=== PATIENT | female | born 1940 | race African-American/Black ===

== ENCOUNTER 2016-10-26 16:25 | Emergency (ER) | payer OTHER ==
[~2016-10-26] VITALS: Ht 165.1 cm; Wt 95.3 kg
[~2016-10-26 16:25] MED LIST: AMLO5TAB2 PO; ASPI81TA2 PO; ATOR20TA58 PO; CETI10TA16 PO; CLIN300C86 PO; HYDR-2666 PO; LOSA100T6 PO
--- NOTE | 2016-10-26 17:48 | RAD ---
PROCEDURE CT head without intravenous contrast. HISTORY Fall, trauma to back of head. TECHNIQUE Axial images are obtained of the head from the skull base through the vertex without IV contrast Noncontrast CT of the cervical spine was performed. Axial, sagittal, and coronal reconstructions were obtained. Exposure: One or more of the following individualized dose reduction techniques were utilized for this examination: 1. Automated exposure control. 2. Adjustment of the mA and/or kV according to patient size. 3. Use of iterative reconstruction technique. COMPARISON CT head June 15, 2016. FINDINGS CT head: The ventricles are appropriate in size, shape, and location for the patient's age.No obvious intracranial mass, mass-effect, midline shift, hemorrhage or obvious acute infarction is identified.Basilar cisterns are patent. Bone windows demonstrate no acute calvarial abnormality.The visualized paranasal sinuses appear clear. CT C-spine: Motion artifact is seen at several levels, which could obscure subtle abnormalities. No acute fracture or acute malalignment is identified. Multilevel degeneration is present with facet and uncovertebral hypertrophy as well as degenerative disc disease. No prevertebral soft tissue swelling is identified. Images of the upper chest demonstrate ingested food stuffs to the right of the trachea which is favored to be within esophageal diverticulum. IMPRESSION 1. No acute intracranial process. Please note that CT can be relatively insensitive to acute ischemic infarction for up to 24 hours after symptom onset. 2. No acute osseous traumatic injury identified in the cervical spine. 3. Proximal cervical esophageal diverticulum. Electronically signed by: Angel Ku MD (Oct 26, 2016 17:47:05)
--- NOTE | 2016-10-26 17:59 | PHYS DOC ---
Past Medical History Past Medical History: Hypertension Past Surgical History: Hysterectomy, Other Additional Past Surgical Histo: abscess, Left shoulder, bilat cataract Alcohol Use: None Drug Use: None Adult General Chief Complaint Chief Complaint: MECHANICAL FALL HPI HPI Patient is a 76 year old female who presents with injury to her posterior head after fall at home. She said she turned quickly in her kitchen, lost her balance , and fell backwards hitting the back of her head on her counter. She denies loss of consciousness, headache, dizziness, vision changes, numbness, tingling, weakness, nausea or vomiting, neck pain, back pain, chest pain, dyspnea, palpitations, diaphoresis, fever or chills. No other injury. Review of Systems Review of Systems Constitutional: Denies fever or chills [] Eyes: Denies change in visual acuity, redness, or eye pain [] HENT: Denies nasal congestion or sore throat [] Respiratory: Denies cough or shortness of breath [] Cardiovascular: No additional information not addressed in HPI [] GI: Denies abdominal pain, nausea, vomiting, bloody stools or diarrhea [] : Denies dysuria or hematuria [] Musculoskeletal: Denies back pain or joint pain [] Integument: Denies rash or skin lesions [] Neurologic: Denies headache, focal weakness or sensory changes [] Endocrine: Denies polyuria or polydipsia [] Allergies Allergies Allergies Coded Allergies Type Severity Reaction Last Updated Verified Penicillins Allergy Intermediate Rash 08/13/14 Yes Tetanus Vaccines and Toxoid Allergy Intermediate 10/26/16 Yes Uncoded Allergies Type Severity Reaction Last Updated Verified EGGS Allergy Unknown VOMITING 08/13/14 PENICILLIN Allergy Unknown Rash 08/13/14 Physical Exam Physical Exam Constitutional: Well developed, well nourished, no acute distress, non-toxic appearance. [] HENT: Normocephalic, bilateral external ears normal, oropharynx moist, no oral exudates, nose normal. Mid/right posterior scalp with small nonbleeding puncture wound with small hematoma superior to this, no palpable skull abnormality, minimal tenderness. [] Eyes: PERRLA, EOMI, conjunctiva normal, no discharge. [] Neck: Normal range of motion, no tenderness, supple. [] Cardiovascular:Heart rate regular rhythm [] Lungs & Thorax: Bilateral breath sounds clear to auscultation [] Abdomen: Bowel sounds normal, soft, no tenderness. [] Skin: Warm, dry, no erythema, no rash. [] Back: No tenderness, no CVA tenderness. [] Extremities: No tenderness, ROM intact, ambulatory with a steady gait. [] Neurologic: Alert and oriented X 3, normal motor function, normal sensory function, no focal deficits noted, cranial nerves II through XII intact. [] Psychologic: Affect normal, judgement normal, mood normal. [] Current Patient Data Vital Signs Vital Signs Date Time Temp Pulse Resp B/P Pulse Ox O2 Delivery O2 Flow Rate FiO2 10/26/16 18:05 70 16 196/89 97 Room Air 10/26/16 16:43 97.9 97.9 Radiology/Procedures Radiology/Procedures CT head and C-spine without contrast IMPRESSION 1. No acute intracranial process. Please note that CT can be relatively insensitive to acute ischemic infarction for up to 24 hours after symptom onset. 2. No acute osseous traumatic injury identified in the cervical spine. 3. Proximal cervical esophageal diverticulum. Electronically signed by: Angel Ku MD (Oct 26, 2016 17:47:05) Course & Med Decision Making Course & Med Decision Making Pertinent Labs and Imaging studies reviewed. (See chart for details) She appears well on exam with small puncture wound. Imaging as above. Discussed local wound care. She has a steady gait. Return precautions given. She understands and agrees with plan. Dragon Disclaimer Dragon Disclaimer This electronic medical record was generated, in whole or in part, using a voice recognition dictation system. Departure Departure Impression: Primary Impression: Closed head injury Additional Impression: Puncture wound of scalp Disposition: 01 HOME, SELF-CARE Condition: STABLE Referrals: KURTIS HOLDER MD (PCP) Patient Instructions: Head Injury, Adult, [id number] Additional Instructions: Wash your hair normal. Follow-up with your primary care doctor. Return for any concerns. Problem Qualifiers Primary Impression: Closed head injury Encounter type: initial encounter Qualified Code: S09.90XA - Unspecified injury of head, initial encounter Additional Impression: Puncture wound of scalp Encounter type: initial encounter Qualified Code: S01.03XA - Puncture wound without foreign body of scalp, initial encounter Tyree WEAVER MD Oct 26, 2016 17:59
[2016-10-26 18:05] VITALS: BP 196/89
== END 2016-10-26 18:07 | disposition home or self-care (01) ==
LOC: ER 16:25
DX: S01.01XA Laceration without foreign body of scalp, initial encounter (principal); I10 Essential (primary) hypertension; Z88.0 Allergy status to penicillin; Z88.7 Allergy status to serum and vaccine; Z91.012 Allergy to eggs; W01.198A Fall on same level from slipping, tripping and stumbling with subsequent striking against other object, initial encounter; Y93.89 Activity, other specified; Y92.090 Kitchen in other non-institutional residence as the place of occurrence of the external cause; Y99.8 Other external cause status
CPT/HCPCS: 70450; 72125; 99284-25

== ENCOUNTER → 2017-06-21 | Outpatient (CLI) | payer OTHER ==
[2016-06-15 14:30] VITALS: BP 192/84
[~2017-06-21] MED LIST changes: +ASPI-630 PO; -ASPI81TA2 PO; +CLIN300C8 PO; -CLIN300C86 PO; -HYDR-2666 PO; +HYDR-2758 PO
--- NOTE | 2017-06-21 09:54 | RAD ---
DATE: 06/21/2017. EXAM: DIGITAL SCREEN BILAT W/CAD. HISTORY: Routine mammographic screening. COMPARISON: 06/20/2016. This study was interpreted with the benefit of Computerized Aided Detection (CAD). FINDINGS: The breast parenchyma is heterogeneously dense, which could reduce sensitivity of mammography. Breast parenchyma level C.. There are no suspicious masses, microcalcifications or architectural distortion. Scattered and coarse calcifications are stable and benign. BI-RADS CATEGORY: 2 BENIGN FINDING(S). RECOMMENDED FOLLOW-UP: 12M 12 MONTH FOLLOW-UP. PQRS compliance statement: Patient information was entered into a reminder system with a target due date 06/21/2018 for the next mammogram. Mammography is a sensitive method for finding small breast cancers, but it does not detect them all and is not a substitute for careful clinical examination. A negative mammogram does not negate a clinically suspicious finding and should not result in delay in biopsying a clinically suspicious abnormality. "Our facility is accredited by the [employer] Mammography [employer]."
== END | disposition home or self-care (01) ==
LOC: MAMMO 07:40
PROVIDERS: ATTEND Pediatrics
DX: Z12.31 Encounter for screening mammogram for malignant neoplasm of breast (principal)
CPT/HCPCS: G0202; 77067

== ENCOUNTER → 2017-06-21 | Outpatient (CLI) | payer MEDICARE, OTHER ==
--- NOTE | 2017-06-21 09:26 | KCIC ---
Bone mineral density exam History: Hysterectomy Comparison: None Findings: Bone mineral density examination utilizing DEXA was performed. Left hip bone mineral density of 1.074 g/cm2 corresponds with a T score 1.1, Z score 1.6. The bone mineral density of the lumbar spine was 1.194 g/cm2 which corresponds with a T-score of 1.3, Z score 3.1. By World [employer] on Osteoporosis criteria, a T score of 0 to-1 SD is considered to be within normal limits. A T score of -1 to -2.5 SD is considered osteopenia. A T score less than -2.5 SD is considered osteoporosis Impression: 1. There is normal bone density of the lumbar spine and the left hip. Electronically signed by: Cleveland Roth MD (06/21/2017 9:23 AM) [id number]
== END | disposition home or self-care (01) ==
LOC: KCIC DEXA 08:39
PROVIDERS: ATTEND Pediatrics
DX: M85.88 Other specified disorders of bone density and structure, other site (principal); Z78.0 Asymptomatic menopausal state
CPT/HCPCS: 77080

== ENCOUNTER → 2018-07-11 | Outpatient (CLI) | payer OTHER ==
[2016-06-15 14:30] VITALS: BP 192/84
[~2018-07-11] MED LIST changes: -AMLO5TAB2 PO; +AMLO5TAB7 PO; -HYDR-2758 PO; +HYDR-2761 PO; +LOSA100T14 PO; -LOSA100T6 PO
--- NOTE | 2018-07-11 12:54 | RAD ---
DATE: July 11, 2018 EXAM: MAMMO WILY SCREENING BILATERAL HISTORY: Screening study. COMPARISON: 2016 and 2017 This study was interpreted with the benefit of Computerized Aided Detection (CAD). 2-D digital mammographic views of both breasts were performed in the CC and MLO projections. 3-D digital tomosynthesis images of both breasts were performed in the CC and MLO projections and reviewed on a computer workstation. FINDINGS: Breast Density: HETERO The breast parenchyma is heterogenously dense, which could reduce sensitivity of mammography. Breast parenchyma level C.. There are no dominant suspicious masses, suspicious microcalcifications or evidence of architectural distortion. IMPRESSION: No mammographic indicators for malignancy. BI-RADS CATEGORY: 1 NEGATIVE RECOMMENDED FOLLOW-UP: 12M 12 MONTH FOLLOW-UP PQRS compliance statement: Patient information was entered into a reminder system with a target due date July 12, 2019 for the next mammogram. Mammography is a sensitive method for finding small breast cancers, but it does not detect them all and is not a substitute for careful clinical examination. A negative mammogram does not negate a clinically suspicious finding and should not result in delay in biopsying a clinically suspicious abnormality. "Our facility is accredited by the [employer] Mammography [employer]." The patient's breast density may affect the ability of mammography to detect breast cancer. There are 4 categories of breast density, A, B, C and D. Breast density A means that most of the breast tissue is replaced with adipose tissue and therefore is not dense. Breast density B means that the breast tissue is mildly dense and scattered. Breast density C means that the breast tissue is heterogeneously dense. Breast density D means that the breast tissue is very dense. Breast densities especially C and D may decrease the sensitivity of mammography to detect breast cancer. Therefore, the patient may benefit from 3-D breast mammography (3D breast tomography) as a part of their screening mammogram. Insurance may or may not pay for this additional imaging. The patient's breast density based on today's mammogram is category C.
== END | disposition home or self-care (01) ==
LOC: MAMMO 11:38
PROVIDERS: ATTEND Pediatrics
DX: Z12.31 Encounter for screening mammogram for malignant neoplasm of breast (principal)
CPT/HCPCS: 77063; 77067

== ENCOUNTER → 2019-07-18 | Outpatient (CLI) | payer OTHER ==
[2016-06-15 14:30] VITALS: BP 192/84
[~2019-07-18] MED LIST changes: +AMLO5TAB10 PO; -AMLO5TAB7 PO
--- NOTE | 2019-07-18 18:29 | RAD ---
DATE: 07/18/2019. EXAM: MAMMO WILY SCREENING BILATERAL. HISTORY: Routine mammographic screening. COMPARISON: 07/11/2018. This study was interpreted with the benefit of Computerized Aided Detection (CAD). FINDINGS: Breast Density: HETERO The breast parenchyma is heterogenously dense, which could reduce sensitivity of mammography. Breast parenchyma level C.. There are no suspicious masses, microcalcifications or architectural distortion. Scattered and coarse calcifications are benign. The parenchymal pattern is stable. BI-RADS CATEGORY: 2 BENIGN FINDING(S). RECOMMENDED FOLLOW-UP: 12M 12 MONTH FOLLOW-UP. PQRS compliance statement: Patient information was entered into a reminder system with a target due date 07/18/2020 for the next mammogram. Mammography is a sensitive method for finding small breast cancers, but it does not detect them all and is not a substitute for careful clinical examination. A negative mammogram does not negate a clinically suspicious finding and should not result in delay in biopsying a clinically suspicious abnormality. "Our facility is accredited by the [employer] Mammography [employer]."
== END | disposition home or self-care (01) ==
LOC: MAMMO 10:50
PROVIDERS: ATTEND Pediatrics
DX: Z12.31 Encounter for screening mammogram for malignant neoplasm of breast (principal); N64.89 Other specified disorders of breast
CPT/HCPCS: 77063; 77067

== ENCOUNTER 2019-10-28 18:04 | Emergency (ER) | payer MEDICARE, OTHER ==
[~2019-10-28] VITALS: Ht 162.6 cm; Wt 81.8 kg
[2019-10-28] MEDS ORDERED: IV NORMAL SALINE 1000ML BAG 1,000 ML IV ONE (19:45)
[2019-10-28 19:57] LABS: BILIRUBIN,URINE NEGATIVE (NEG); CLARITY,URINE CLEAR; COLOR,URINE YELLOW; NITRITE,URINE NEGATIVE (NEG); PH,URINE 5.5 (<5.0-8.0); PROTEIN,URINE NEGATIVE (NEG-TRACE); UROBILINOGEN,URINE 0.2 mg/dL (0.2 mg/dL)
--- NOTE | 2019-10-28 20:00 | RAD ---
AP portable chest radiograph 10/28/2019 Clinical History: Unexplained dizziness. An AP erect portable digital radiograph of the chest was obtained. No previous studies are available for comparison. The cardiac silhouette is mildly enlarged. The thoracic aorta is tortuous. Atherosclerotic calcification of the thoracic aorta is seen. No acute pulmonary infiltrate is noted. No pneumothorax or pleural effusion is seen. Degenerative changes are seen involving the thoracic spine and both shoulders. IMPRESSION: No acute abnormality is seen. Electronically signed by: Ty Farley MD (10/28/2019 7:57 PM) [id number]
[2019-10-28 20:03] LABS: BACTERIA,URINE FEW /HPF (0-FEW); BARBITURATES NEG (NEG); BENZODIAZEPINES NEG (NEG); CANNABINOIDS NEG (NEG); COCAINE NEG (NEG); METHADONE NEG (NEG); OPIATES NEG (NEG); PHENCYCLIDINE NEG (NEG); RBC,URINE 0 /HPF (0-2)
[2019-10-28 20:04] LABS: SQUAMOUS EPITHELIAL CELL,UR FEW /LPF
[2019-10-28 20:07] LABS: AMPHETAMINE/METHAMPHETAMINE NEG (NEG)
[2019-10-28 20:14] LABS: BASO # 0.1 x10^3/uL (0.0-0.2); BASO % 1 % (0-3); EOS # 0.2 x10^3/uL (0.0-0.7); EOS % 2 % (0-3); HEMOGLOBIN 13.1 g/dL (12.0-15.5); LYMPH # 2.6 x10^3/uL (1.0-4.8); LYMPH % 28 % (24-48); MEAN CORPUSCULAR HEMOGLOBIN 27 pg (25-35); MEAN CORPUSCULAR HGB CONC 33 g/dL (31-37); MEAN CORPUSCULAR VOLUME 84 fL (79-100); MONO # 0.9 x10^3/uL (0.0-1.1); MONO % 10 % (0-9); NEUT # 5.4 x10^3/uL (1.8-7.7); NEUT % 60 % (31-73); PLATELET COUNT 284 x10^3/uL (140-400); RED BLOOD COUNT 4.77 x10^6/uL (3.50-5.40); WHITE BLOOD COUNT 9.1 x10^3/uL (4.0-11.0)
--- NOTE | 2019-10-28 20:21 | RAD ---
CT head without contrast dated 10/28/2019. Comparison made to October 26, 2016. CLINICAL INDICATION: Dizziness. TECHNIQUE: Used axial imaging the head was performed from skull base to vertex. One or more of the following individualized dose reduction techniques were utilized for this examination: 1. Automated exposure control 2. Adjustment of the mA and/or kV according to patient size 3. Use of iterative reconstruction technique. FINDINGS: Ventricles and sulci are mildly prominent for age. No midline shift or mass effect. Mild patchy low density in the deep/subcortical periventricular white matter. No hemorrhage or extra-axial collection. Posterior fossa and brainstem unremarkable. Mild mucosal thickening of the ethmoid air cells. The visualized paranasal sinuses and mastoid air cells are otherwise clear. No apparent calvarial abnormality. IMPRESSION: 1. No evidence of acute intracranial hemorrhage or mass. 2. Mild chronic small vessel ischemic changes and atrophy. Electronically signed by: Angel Mack MD (10/28/2019 8:18 PM) [id number]
[2019-10-28 20:33] LABS: CALCIUM 9.1 mg/dL (8.5-10.1); CREATININE 1.2 mg/dL (0.6-1.0); GFR 52.4; POTASSIUM 4.2 mmol/L (3.5-5.1)
[2019-10-28 20:39] LABS: ALBUMIN 3.9 g/dL (3.4-5.0); MAGNESIUM 2.2 mg/dL (1.8-2.4); TOTAL BILIRUBIN 0.4 mg/dL (0.2-1.0); TOTAL PROTEIN 7.7 g/dL (6.4-8.2)
[2019-10-28 21:25] VITALS: BP 158/67
--- NOTE | 2019-10-28 21:40 | PHYS DOC ---
Past Medical History Past Medical History: Hypertension (MARIANGEL DAIGLE APRN) Past Surgical History: Hysterectomy, Other Additional Past Surgical Histo: abscess, Left shoulder, bilat cataract (MARIANGEL DAIGLE APRN) Smoking Status: Never Smoker Alcohol Use: None Drug Use: None (MARIANGEL DAIGLE APRN) Attending Signature I have participated in the care of this patient and I have reviewed and agree with all pertinent clinical information above including history, exam, and recommendations. (LUCIO PACHECO MD) Adult General Chief Complaint Chief Complaint: DIZZY/LIGHT HEADED HPI HPI Patient is a 79 year old female with history of hypertension who presents to the ED today complaining of an episode of dizziness that occurred this evening. Patient reports spending the afternoon doing yard work, she states she was done with the yardwork at around 4 PM and went back to the house, she states she was having a cup of tea sitting down and felt dizzy. Patient states the episode of dizziness did not last long, it subsided right away. She states she had to come to the ED to be checked out just to make sure everything is okay. She states she also had a headache that subsided right away. She denies any dizziness right now, denies any chest pain or shortness of breath. She reports her blood pressure medications were changed at the beginning of the month, she does not recall what kind of change was done and which medicines were changed. (MARIANGEL DAIGLE APRN) Review of Systems Review of Systems Constitutional: Denies fever or chills [] Eyes: Denies change in visual acuity, redness, or eye pain [] HENT: Denies nasal congestion or sore throat [] Respiratory: Denies cough or shortness of breath [] Cardiovascular: No additional information not addressed in HPI [] GI: Denies abdominal pain, nausea, vomiting, bloody stools or diarrhea [] : Denies dysuria or hematuria [] Musculoskeletal: Denies back pain or joint pain [] Integument: Denies rash or skin lesions [] Neurologic: Reports headache and dizziness, denies focal weakness or sensory changes [] All other systems were reviewed and found to be within normal limits, except as documented in this note. (MARIANGEL DAIGLE APRN) Current Medications Current Medications Current Medications Medications (Trade) Dose Ordered Sig/Brad Start Time Stop Time Status Last Admin Dose Admin Sodium Chloride 1,000 ml @ 1,000 mls/hr 1X ONCE 10/28/19 19:45 10/28/19 20:44 Cancel (LUCIO PACHECO MD) Allergies Allergies Allergies Coded Allergies Type Severity Reaction Last Updated Verified Penicillins Allergy Intermediate Rash 08/13/14 Yes Tetanus Vaccines and Toxoid Allergy Intermediate 10/26/16 Yes Uncoded Allergies Type Severity Reaction Last Updated Verified EGGS Allergy Unknown VOMITING 08/13/14 PENICILLIN Allergy Unknown Rash 08/13/14 (LUCIO PACHECO MD) Physical Exam Physical Exam Constitutional: Well developed, well nourished, no acute distress, non-toxic appearance. [] HENT: Normocephalic, atraumatic, bilateral external ears normal, oropharynx moist, no oral exudates, nose normal. [] Eyes: PERRLA, EOMI, conjunctiva normal, no discharge. [] Neck: Normal range of motion, no tenderness, supple, no stridor. [] Cardiovascular:Heart rate regular rhythm, no murmur [] Lungs & Thorax: Bilateral breath sounds clear to auscultation [] Abdomen: Bowel sounds normal, soft, no tenderness, no masses, no pulsatile masses. [] Skin: Warm, dry, no erythema, no rash. [] Back: No tenderness, no CVA tenderness. [] Extremities: No tenderness, no cyanosis, no clubbing, ROM intact, no edema. [] Neurologic: Alert and oriented X 3, normal motor function, normal sensory function, no focal deficits noted. Cranial nerves II through XII intact Psychologic: Affect normal, judgement normal, mood normal. [] (MARIANGEL DAIGLE APRN) Current Patient Data Vital Signs Vital Signs Date Time Temp Pulse Resp B/P (MAP) Pulse Ox O2 Delivery O2 Flow Rate FiO2 10/28/19 21:25 64 20 100 10/28/19 19:20 97.9 133/100 (111) Room Air 97.9 (LUCIO PACHECO MD) Lab Values Laboratory Tests Test 10/28/19 17:55 10/28/19 18:33 10/28/19 19:35 White Blood Count 9.1 x10^3/uL (4.0-11.0) Red Blood Count 4.77 x10^6/uL (3.50-5.40) Hemoglobin 13.1 g/dL (12.0-15.5) Hematocrit 40.0 % (36.0-47.0) Mean Corpuscular Volume 84 fL (79-100) Mean Corpuscular Hemoglobin 27 pg (25-35) Mean Corpuscular Hemoglobin Concent 33 g/dL (31-37) Red Cell Distribution Width 13.0 % (11.5-14.5) Platelet Count 284 x10^3/uL (140-400) Neutrophils (%) (Auto) 60 % (31-73) Lymphocytes (%) (Auto) 28 % (24-48) Monocytes (%) (Auto) 10 % (0-9) H Eosinophils (%) (Auto) 2 % (0-3) Basophils (%) (Auto) 1 % (0-3) Neutrophils # (Auto) 5.4 x10^3/uL (1.8-7.7) Lymphocytes # (Auto) 2.6 x10^3/uL (1.0-4.8) Monocytes # (Auto) 0.9 x10^3/uL (0.0-1.1) Eosinophils # (Auto) 0.2 x10^3/uL (0.0-0.7) Basophils # (Auto) 0.1 x10^3/uL (0.0-0.2) Sodium Level 139 mmol/L (136-145) Potassium Level 4.2 mmol/L (3.5-5.1) Chloride Level 101 mmol/L (98-107) Carbon Dioxide Level 31 mmol/L (21-32) Anion Gap 7 (6-14) Blood Urea Nitrogen 17 mg/dL (7-20) Creatinine 1.2 mg/dL (0.6-1.0) H Estimated GFR (Cockcroft-Gault) 52.4 BUN/Creatinine Ratio 14 (6-20) Glucose Level 96 mg/dL (70-99) Calcium Level 9.1 mg/dL (8.5-10.1) Magnesium Level 2.2 mg/dL (1.8-2.4) Total Bilirubin 0.4 mg/dL (0.2-1.0) Aspartate Amino Transferase (AST) 17 U/L (15-37) Alanine Aminotransferase (ALT) 18 U/L (14-59) Alkaline Phosphatase 72 U/L (46-116) Troponin I Quantitative < 0.017 ng/mL (0.000-0.055) Total Protein 7.7 g/dL (6.4-8.2) Albumin 3.9 g/dL (3.4-5.0) Albumin/Globulin Ratio 1.0 (1.0-1.7) Thyroid Stimulating Hormone (TSH) 2.136 uIU/mL (0.358-3.74) Urine Collection Type Unknown Urine Color Yellow Urine Clarity Clear Urine pH 5.5 (<5.0-8.0) Urine Specific [place] <=1.005 (1.000-1.030) Urine Protein Negative mg/dL (NEG-TRACE) Urine Glucose (UA) Negative mg/dL (NEG) Urine Ketones (Stick) Negative mg/dL (NEG) Urine Blood Negative (NEG) Urine Nitrite Negative (NEG) Urine Bilirubin Negative (NEG) Urine Urobilinogen Dipstick 0.2 mg/dL (0.2 mg/dL) Urine Leukocyte Esterase Negative (NEG) Urine RBC 0 /HPF (0-2) Urine WBC 1-4 /HPF (0-4) Urine Squamous Epithelial Cells Few /LPF Urine Bacteria Few /HPF (0-FEW) Urine Mucus Slight /LPF Urine Opiates Screen Neg (NEG) Urine Methadone Screen Neg (NEG) Urine Barbiturates Neg (NEG) Urine Phencyclidine Screen Neg (NEG) Urine Amphetamine/Methamphetamine Neg (NEG) Urine Benzodiazepines Screen Neg (NEG) Urine Cocaine Screen Neg (NEG) Urine Cannabinoids Screen Neg (NEG) Urine Ethyl Alcohol Neg (NEG) Creatine Kinase 142 U/L (26-192) Creatine Kinase MB (Mass) 1.2 ng/mL (0.0-3.6) Creatine Kinase MB Relative Index 0.8 % (0-4) AT-Ryd-G-Type Natriuretic Peptide 265 pg/mL (0-449) Laboratory Tests 10/28/19 17:55 Laboratory Tests 10/28/19 17:55 (LUCIO PACHECO MD) EKG EKG [address] Pacheco sinus rhythm HR 71 no STEMI[] (MARIANGEL DAIGLE APRN) Radiology/Procedures Radiology/Procedures []PROCEDURE: PORTABLE CHEST 1V AP portable chest radiograph 10/28/2019 Clinical History: Unexplained dizziness. An AP erect portable digital radiograph of the chest was obtained. No previous studies are available for comparison. The cardiac silhouette is mildly enlarged. The thoracic aorta is tortuous. Atherosclerotic calcification of the thoracic aorta is seen. No acute pulmonary infiltrate is noted. No pneumothorax or pleural effusion is seen. Degenerative changes are seen involving the thoracic spine and both shoulders. IMPRESSION: No acute abnormality is seen. Electronically signed by: Ty Farley MD (10/28/2019 7:57 PM) [id number] DICTATED and SIGNED BY: TY FARLEY MD DATE: 10/28/191956 PROCEDURE: CT HEAD WO CONTRAST CT head without contrast dated 10/28/2019. Comparison made to October 26, 2016. CLINICAL INDICATION: Dizziness. TECHNIQUE: Used axial imaging the head was performed from skull base to vertex. One or more of the following individualized dose reduction techniques were utilized for this examination: 1. Automated exposure control 2. Adjustment of the mA and/or kV according to patient size 3. Use of iterative reconstruction technique. FINDINGS: Ventricles and sulci are mildly prominent for age. No midline shift or mass effect. Mild patchy low density in the deep/subcortical periventricular white matter. No hemorrhage or extra-axial collection. Posterior fossa and brainstem unremarkable. Mild mucosal thickening of the ethmoid air cells. The visualized paranasal sinuses and mastoid air cells are otherwise clear. No apparent calvarial abnormality. IMPRESSION: 1. No evidence of acute intracranial hemorrhage or mass. 2. Mild chronic small vessel ischemic changes and atrophy. Electronically signed by: Angel Staples MD (10/28/2019 8:18 PM) [id number] DICTATED and SIGNED BY: ANGEL STAPLES MD DATE: 10/28/192017 (MARIANGEL DAIGLE APRN) Course & Med Decision Making Course & Med Decision Making Pertinent Labs and Imaging studies reviewed. (See chart for details) This is a 79-year-old female patient presenting to the ED today with an episode of dizziness and headache that occurred after she had done yard work this aft [facility]. Patient has no headache or dizziness right now in the ED. CT of the head is negative, labs were negative for any acute findings. EKG was negative. She reports symptoms of subsided. She didn't up and ambulating with no difficulties. Blood pressure in the 150s over 60s when I went to evaluate patient. She was discharged to home. Encourage to follow-up with the PCP in the course of this week. Discouraged from being outside for long hours doing yardwork. (MARIANGEL DAIGLE APRN) Dragon Disclaimer Dragon Disclaimer This electronic medical record was generated, in whole or in part, using a voice recognition dictation system. (MARIANGEL DAIGLE APRN) Departure Departure Impression: Primary Impression: Dizziness Additional Impression: Headache Disposition: 01 HOME, SELF-CARE Condition: STABLE Referrals: KURTIS HOLDER MD (PCP) follow up in the course of this week Patient Instructions: Dizziness, [id number], Headache, FAQs Additional Instructions: You were evaluated in the emergency room for dizziness and a headache. Please do not be outside for long periods of time doing yard work. Please follow-up with your doctor in the next 1 week. Come back to the ED at any point symptoms worsen. Problem Qualifiers Additional Impression: Headache Headache type: unspecified Headache chronicity pattern: acute headache Intractability: not intractable Qualified Codes: R51 - Headache MARIANGEL DAIGLE APRN Oct 28, 2019 21:40 LUCIO PACHECO MD Oct 29, 2019 05:09
--- NOTE | 2019-10-29 08:06 | EKG ---
[facility] [address] [place] [address] Test Date: 2019-10-28 Test Time: 19:25:56 Pat Name: IRMA RODARTE Department: Room: Gender: F Book Salesman: : 1940 Requested By: MARIANGEL DAIGLE Order Number: [id number] Reading MD: Measurements Intervals [place] Rate: 71 P: 35 PA: 146 QRS: -1 QRSD: 76 T: 99 QT: 370 QTc: 402 Interpretive Statements SINUS RHYTHM ATRIAL PREMATURE COMPLEX(ES) LEFT ATRIAL ABNORMALITY LEFTWARD AXIS ST & T ABNORMALITY, CONSIDER HIGH LATERAL ISCHEMIA OR LEFT VENTRICULAR STRAIN ABNORMAL ECG RI6.01 No previous ECG available for comparison
== END 2019-10-28 21:50 | disposition home or self-care (01) ==
LOC: ER 18:04
DX: R42 Dizziness and giddiness (principal); R51 Headache; I10 Essential (primary) hypertension; Z88.0 Allergy status to penicillin; Z91.041 Radiographic dye allergy status; Z91.012 Allergy to eggs
CPT/HCPCS: 36415; 70450; 71045; 80053; 80307; 81001; 82553; 83735; 83880; 84443; 84484; 85025; 93005; 99285-25

== ENCOUNTER → 2020-07-20 | Outpatient (CLI) | payer MEDICARE, OTHER ==
[~2020-07-20] MED LIST changes: +AMLO-186 PO; -AMLO5TAB10 PO; -CLIN300C8 PO; +CLIN300C9 PO
--- NOTE | 2020-07-20 15:54 | RAD ---
DATE: 07/20/2020 10:05 AM EXAM: MAMMO WILY SCREENING BILATERAL HISTORY: Screening COMPARISON: 07/18/2019 Bilateral CC and MLO views of the breasts were performed. Bilateral breast tomosynthesis was performed in CC and MLO projections. This study was interpreted with the benefit of Computerized Aided Detection (CAD). FINDINGS: Breast Density: HETERO The breast parenchyma Is heterogeneously dense, which could reduce sensitivity of mammography. Breast parenchyma level C No suspicious masses, microcalcifications or architectural distortion is present to suggest malignancy in either breast. The visualized axillae are unremarkable. IMPRESSION: No mammographic evidence of malignancy. BI-RADS CATEGORY: 1 NEGATIVE RECOMMENDED FOLLOW-UP: 12M 12 MONTH FOLLOW-UP Annual screening mammography is recommended, unless clinically indicated sooner based on symptoms or change in physical exam. PQRS compliance statement: Patient information was entered into a reminder system with a target due date for the next mammogram. Mammography is a sensitive method for finding small breast cancers, but it does not detect them all and is not a substitute for careful clinical examination. A negative mammogram does not negate a clinically suspicious finding and should not result in delay in biopsying a clinically suspicious abnormality. "Our facility is accredited by the [employer] Mammography Program."
== END ==
LOC: MAMMO 10:01
PROVIDERS: ATTEND Pediatrics
DX: Z12.31 Encounter for screening mammogram for malignant neoplasm of breast (principal)
CPT/HCPCS: 77063; 77067

== ENCOUNTER → 2021-07-21 | Outpatient (CLI) | payer MEDICAID, MEDICARE ==
[~2021-07-21] MED LIST changes: +CLIN-94 PO; -CLIN300C9 PO
--- NOTE | 2021-07-22 10:53 | RAD ---
INDICATION: 80 years of age asymptomatic female patient presents for screening mammography. Screening TECHNIQUE: Full field craniocaudal and mediolateral oblique images of both breasts were obtained usi ng digital technique with tomosynthesis and also analyzed with computer-aided detection software. . COMPARISON: 07/20/2020 : 2018. BREAST COMPOSITION: Category C: The breast tissue is heterogeneously dense, which could obscure detec tion of small masses. FINDINGS: There is a vague nodular density in the subareolar right breast that measures about 7-8 mm in size, n ot definitely present on prior study, best seen on the tomographic images IMPRESSION: Possible developing density at the subareolar right breast. Recommend compression views a nd possibly ultrasound for better evaluation RECOMMENDATION: Annual screening mammography is recommended, unless clinically indicated sooner based on symptoms or change in physical exam. BIRADS 0: INCOMPLETE - NEED ADDITIONAL IMAGING EVALUATION AND/OR PRIOR MAMMOGRAMS FOR COMPARISON. This study was interpreted with the benefit of Computerized Aided Detection (CAD). . Patient information is entered into the reminder system with a target due date for the next screening mammogram. Mammography is the most sensitive method for finding small breast cancers, but it does not detect the m all and is not a substitute for careful clinical examination. A negative mammogram does not negate a clinically suspicious finding and should not result in delay in biopsying a clinically suspicious a bnormality. "Our facility is accredited by the [employer] Mammography Program." Electronically signed by: Angel Mack MD (07/22/2021 10:50 AM) [id number]
== END ==
LOC: MAMMO 09:53
PROVIDERS: ATTEND Pediatrics
DX: Z12.31 Encounter for screening mammogram for malignant neoplasm of breast (principal)
CPT/HCPCS: 77063; 77067

== ENCOUNTER → 2021-08-09 | Outpatient (CLI) | payer MEDICARE ==
--- NOTE | 2021-08-09 12:20 | RAD ---
EXAM: Right breast diagnostic mammogram; right breast sonogram. HISTORY: 80-year-old female presents for reduction of a nodule within the right breast demonstrated o n a screening mammogram dated 07/21/2021. TECHNIQUE: Spot compression views of the right breast are obtained. Sonographic imaging of the right breast targeted to the site of mammographic abnormality was also performed. COMPARISON: 07/21/2021, 07/20/2020 BREAST PARENCHYMAL DENSITY: Level C - Heterogeneously dense. FINDINGS: There is no convincing persistent suspicious finding of concern within additional mammograp hic views. This favors summation artifact on the screening mammogram. There are coarse benign calcifi cations. There are benign areas of asymmetry. There is no architectural distortion. Significant imaging of the right breast demonstrates mild ductal ectasia. There is no suspicious sono graphic lesion. IMPRESSION: 1. No convincing persistent suspicious mammographic or sonographic finding within the right breast. T his favors summation artifact on the prior exam. 2. BI-RADS Category 3: Probably benign finding(s). Precautionary short term follow up with a diagnost ic right breast mammogram in 6 month is recommended. If your mammogram demonstrates that you have dense breast tissue, which could hide abnormalities, and if you have other risk factors for breast cancer that have been identified, you might benefit from s upplemental screening tests that may be suggested by your ordering physician. Dense breast tissue, i n and of itself, is a relatively common condition. This information is not provided to cause undue c oncern, but rather to raise your awareness and to promote discussion with your physician regarding th e presence of other risk factors, in addition to dense breast tissue. A report of your mammography re sults will be sent to you and your physician. You should contact your physician if you have any ques tions or concerns regarding this report. Mammography is a sensitive method for finding small breast cancers, but it does not detect them all a nd is not a substitute for careful clinical examination. A negative mammogram does not negate a clin ically suspicious finding and should not result in delay in biopsying a clinically suspicious abnorma lity. PQRS compliance statement - Patient information was entered into a reminder system with a target due date for the next mammogram. "Our facility is accredited by the [employer] Mammography Program." Electronically signed by: Rubi Dye MD (08/09/2021 12:17 PM) [id number]
== END ==
LOC: MAMMO 10:56
PROVIDERS: ATTEND Pediatrics
DX: R92.8 Other abnormal and inconclusive findings on diagnostic imaging of breast (principal)
CPT/HCPCS: 76641; 77065